=== PATIENT | female | born 2000 ===

== ENCOUNTER → 2024-10-18 08:54 | Outpatient (CLI) | payer OTHER, SELFPAY ==
[2024-10-18 09:53] LABS: Add Manual Diff / Slide Review NO; Basophils Absolute Auto 0 /uL (0-100); Basophils Percent Auto 0.4 % (0-2); Eosinophils Absolute Auto 200 /uL (0-450); Eosinophils Percent Auto 2.5 % (2-4); Hemoglobin 13.6 g/dL (12.0-16.0); Lymphocytes Absolute Auto 1500 /uL (1100-4500); Lymphocytes Percent Auto 22.6 % (25-40); Mean Corpuscular HGB Conc 35.6 % (30-36); Mean Corpuscular Hemoglobin 32.3 PG (26-34); Mean Corpuscular Volume 90.6 fL (80-100); Monocytes Absolute Auto 600 /uL (0-900); Monocytes Percent Auto 9.1 % (3-14); Neutrophils Absolute Auto 4300 /uL (1500-7000); Neutrophils Percent Auto 65.4 % (50-75); Platelet Count 235 X10^3/uL (150-400); Red Cell Distribution Width 12.8 % (11.6-14.8); White Blood Cell Count 6.6 X10^3/uL (4.5-11.0)
[2024-10-18 10:01] LABS: HEMOLYSIS < 15 (0-50)
[2024-10-18 10:06] LABS: HEMOLYSIS < 15 (0-50); Iron 84 ug/dL (37-170)
[2024-10-18 10:11] LABS: Alanine Aminotransferase 17 IU/L (<35); Albumin 4.9 g/dL (3.5-5.0); Albumin Globulin Ratio 1.5 (1.0-2.8); Alkaline Phosphatase 57 U/L (38-126); Aspartate Aminotransferase 26 IU/L (14-36); BUN Creatinine Ratio 28.1 (6-22); Bilirubin Total 0.6 mg/dL (0.2-1.3); Blood Urea Nitrogen 18 mg/dL (7-17); Calcium 9.5 mg/dL (8.4-10.2); Carbon Dioxide 23 mmol/L (22-32); Chloride 104 mmol/L (98-107); Estimated Glomerular Filt Rate > 60 mL/min (>60); Globulin 3.2 g/dL (1.7-4.1); Glucose 76 mg/dL (70-99); Potassium 4.5 mmol/L (3.4-5.1); Sodium 137 mmol/L (137-145); Total Protein 8.1 g/dL (6.3-8.2)
[2024-10-18 10:16] LABS: Percent Iron Saturation 23 % (15-50); Total Iron Binding Capacity 368 ug/dL (265-497); Transferrin 313 mg/dL (206-381)
[2024-10-18 10:47] LABS: Ferritin 23 ng/mL (6-137)
== END ==
PROVIDERS: PCP Family Medicine; Referring Provider Family Medicine; Visit Provider Family Medicine
DX: E61.1 Iron deficiency (principal); Z83.3 Family history of diabetes mellitus; Z83.42 Family history of familial hypercholesterolemia
CPT/HCPCS: 36415; 80053; 82728; 83540; 83550; 85025

== ENCOUNTER → 2025-01-08 10:00 | Outpatient (CLI) | payer OTHER, SELFPAY ==
[2025-01-08 10:56] LABS: HEMOLYSIS < 15 (0-50); Iron 119 ug/dL (37-170)
[2025-01-08 11:07] LABS: Percent Iron Saturation 36 % (15-50); Total Iron Binding Capacity 334 ug/dL (265-497); Transferrin 275 mg/dL (206-381)
[2025-01-08 11:29] LABS: TSH w/ Reflex to FT4 8.99 uIU/mL (0.47-4.68)
[2025-01-08 11:59] LABS: Ferritin 69 ng/mL (6-137)
[2025-01-08 13:46] LABS: Free T4, Direct Thyroxine 0.59 ng/dL (0.78-2.19)
== END ==
PROVIDERS: PCP Family Medicine; Referring Provider Family Medicine; Visit Provider Family Medicine
DX: R55 Syncope and collapse (principal); Z83.3 Family history of diabetes mellitus; Z83.42 Family history of familial hypercholesterolemia; E61.1 Iron deficiency
CPT/HCPCS: 36415; 81025; 82728; 83540; 83550; 84439; 84443

== ENCOUNTER → 2025-03-01 12:33 | Outpatient (CLI) | payer OTHER, SELFPAY ==
[2025-03-01 14:23] LABS: TSH w/ Reflex to FT4 2.54 uIU/mL (0.47-4.68)
== END ==
PROVIDERS: PCP Family Medicine; Referring Provider Family Medicine; Visit Provider Family Medicine
DX: E03.9 Hypothyroidism, unspecified (principal)
CPT/HCPCS: 36415; 84443